=== PATIENT | female | born 1970 | race Caucasian/White ===

== ENCOUNTER 2017-07-10 14:20 | Emergency (ER) | payer SELFPAY ==
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
[2017-07-10] MEDS ORDERED: METO25TA23 PO (14:32)
[2017-07-10] MEDS ORDERED: ATOR40TA24 PO (14:32)
[2017-07-10] MEDS ORDERED: ALPR-429 PO (14:32)
[2017-07-10] MEDS ORDERED: LOSA25TA50 PO (14:32)
[2017-07-10] MEDS ORDERED: NS(*) 0.9% 1000 ML BAG 1,000 ML IV ONE (14:49)
[2017-07-10] MEDS ORDERED: KETOROLAC 30 MG/ML VIAL IVP ONE (14:50)
--- NOTE | 2017-07-10 14:56 | EKG ---
FACILITY: [facility] PATIENT NAME: PHUONG SRINIVASAN : [id number] MR: [id number] V: [id number] EXAM DATE: ORDERING PHYSICIAN: HUI MUNIZ TECHNOLOGIST: SOY Aguila Reason : neuro Blood Pressure : / mmHG Vent. Rate : 068 BPM Atrial Rate : 068 BPM P-R Int : 124 ms QRS Dur : 090 ms QT Int : 436 ms P-R-T Axes : 053 073 064 degrees QTc Int : 463 ms Normal sinus rhythm Prolonged QT No previous ECGs available Confirmed by FABIAN LOPEZ ([id number]) on 07/11/2017 7:17:33 PM Referred By: DAPHNEY Confirmed By:FABIAN LOPEZ
[2017-07-10 15:04] LABS: PLATELET COUNT, AUTOMATED 335 K/uL (150-450)
[2017-07-10 15:14] LABS: INR 0.96
--- NOTE | 2017-07-10 15:32 | RADIOLOGY IMAGING REPORT ---
FACILITY: [facility] [place] PATIENT NAME: Deborah Elias : 1970 MR: [id number] V: [id number] EXAM DATE: ORDERING PHYSICIAN: HUI MUNIZ TECHNOLOGIST: [place] [facility] [place] Eli[place] : 1970 Visit/Account:[id number] Date of Sevice: 07/10/2017 2 VIEWS CHEST INDICATION: Shortness of breath. COMPARISON: None available FINDINGS: The lungs are clear. No effusion or pneumothorax is seen. Heart size and mediastinal contours are nor mal. Thoracic aorta is tortuous. There is a prominent aortic knob suspicious for aortic ectasia/aneur ysmal dilatation. There has been previous median sternotomy. IMPRESSION: 1. Clear lungs without radiographic evidence of active disease. 2. Prominent thoracic aorta suggesting ectasia/aneurysmal dilatation. Report Dictated By: Jonah Hart at 07/10/2017 3:20 PM Report E-Signed By: Jonah Hart at 07/10/2017 3:26 PM [id number]
--- NOTE | 2017-07-10 15:35 | RADIOLOGY IMAGING REPORT ---
FACILITY: [facility] - [place] PATIENT NAME: Deborah Elias : 1970 MR: [id number] V: [id number] EXAM DATE: ORDERING PHYSICIAN: HUI MUNIZ TECHNOLOGIST: Location: [facility] Patient: Deborah Elias : 1970 Visit/Account:[id number] Date of Sevice: 07/10/2017 EXAMINATION: CT HEAD WITHOUT CONTRAST COMPARISON: None available HISTORY: Visual changes. PROCEDURE: Noncontrast CT from the vertex through the skull base. One of the following dose optimizat ion techniques was utilized in the performance of this exam: Automated exposure control; adjustment o f the mA and/or kV according to the patient's size; or use of an iterative reconstruction technique. Specific details can be referenced in the facility's radiology CT exam operational policy. FINDINGS: Brain volume: Age-appropriate. Hemorrhage/extra-axial fluid: None. Mass effect/midline shift/edema: None. Ischemia: Hines-white differentiation is preserved. Ventricles and basal cisterns: Within normal limits. Posterior fossa: Negative. Vessels: Negative. Calvarium, skull base, and scalp: Negative. Visualized sinuses and orbits: Within normal limits. IMPRESSION: Negative age-appropriate noncontrast head CT. Report Dictated By: Juan Gr MD at 07/10/2017 3:25 PM Report E-Signed By: Juan Gr MD at 07/10/2017 3:30 PM [id number]
[2017-07-10] MEDS ORDERED: cefTRIAXone 1 GM VIAL IVP ONE (15:55)
[2017-07-10] MEDS ORDERED: DOXY-179 PO (16:01)
[2017-07-10] MEDS ORDERED: METR-160 PO (16:01)
[2017-07-10 16:15] VITALS: BP 128/74
== END 2017-07-10 16:20 | disposition home or self-care (01) ==
LOC: ER 14:45
DX: N73.0 Acute parametritis and pelvic cellulitis (principal)
CPT/HCPCS: 70450; 71046; 81001; 84484; 84703; 85025; 85610; 85730; 87070; 87210; 87491; 87591; 93005; 96374; 96375; 99284; J0696; J1885; 82040; 82247; 82310; 82374; 82435; 82565; 82947; 84075; 84132; 84155; 84295; 84450; 84460; 84520; 87077